=== PATIENT | female | born 1950 | race Caucasian/White ===

== ENCOUNTER 2017-01-31 12:09 | Emergency (ER) | payer OTHER ==
--- NOTE | 2017-01-31 13:03 | XRAY Preliminary Report ---
Exam: XR Hip w/Pelvis 2-3V RT IMPRESSION: Negative pelvis and right hip radiography. [facility] SITE ID: [id number]
--- NOTE | 2017-01-31 13:05 | XRAY Report ---
EXAM: RIGHT HIP AND PELVIS RADIOGRAPHY EXAM DATE: 01/31/2017 12:53 PM. HISTORY: Injury, pain with walking. COMPARISONS: None. TECHNIQUE: 1 view of the pelvis and 1 view of the right hip. FINDINGS: Bones: Normal. No fracture or bone lesion. Joints: The bilateral hip, pubis symphysis, and sacroiliac joints are anatomically aligned without si gnificant degenerative change Soft Tissues: No soft tissue swelling. IMPRESSION: Negative pelvis and right hip radiography. [facility] Referring Provider Line: [phone] SITE ID: [id number]
[2017-01-31] MEDS ORDERED: LIDOCAINE PATCH 5% TOP STA (13:18)
--- NOTE | 2017-01-31 13:20 | ED Physician Documentation ---
History of Present Illness - Stated complaint Stated Complaint: R HIP PAIN - Chief complaint Chief Complaint: Ext Problem - Additonal information Additional information: hx from pt 66 f no blood thinners her friends grandson ran into her and she twisted as she fell to avoid landing on him and landed on her right hip pain to lateral hip can walk but painful hurts to flex and int rotate Review of Systems Cardiac: denies: Chest pain / pressure GI: denies: Abdominal Pain Musculoskeletal: denies: Neck pain Neurologic: denies: Headache, Head injury Endocrine: denies: Easy bruising / bleeding PD PAST MEDICAL HISTORY - Past Medical History Past Medical History: Yes Psych: Depression Other Past Medical History: brain bleed - Past Surgical History Past Surgical History: Yes /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 - Present Medications Home Medications: Ambulatory Orders Medication Instructions Recorded Confirmed Sertraline HCl [Zoloft] 200 mg PO DAILY 01/09/15 01/31/17 Aspirin 81 mg DAILY 01/31/17 01/31/17 Cholecalciferol (Vitamin D3) 2,000 unit DAILY 01/31/17 01/31/17 [Vitamin D3] - Allergies Allergies/Adverse Reactions: Allergies Allergy/AdvReac Type Severity Reaction Status Date / Time Sulfa (Sulfonamide Allergy Unknown Verified 01/31/17 12:27 Antibiotics) - Social History Does the pt smoke?: No Smoking Status: Never smoker Does the pt drink ETOH?: No Does the pt have substance abuse?: No PD ED PE NORMAL - Vitals Vital signs reviewed: Yes - HEENT HEENT: Atraumatic - Extremities Extremities: Other (R hip not short, no brusing, not rotated TTP lateral hip just superior and posterior to greater torchanter pain with flexing and int rot hip, MSV intact) Results - Vitals Vitals: Vital Signs - 24 hr 01/31/17 12:23 Temperature 36.3 C L Heart Rate 79 Respiratory 18 Rate Blood Pressure 144/80 H O2 Saturation 97 Oxygen O2 Source Room air - Rads (name of study) hip/pelvis Radiology: See rad report (no fx) PD MEDICAL DECISION MAKING - ED course ED course: pt is ambulatory and does not appear osteopenic on xray so do not feel CT after neg xray needed in this case Departure - Departure Disposition: 01 Home, Self Care Clinical Impression: Contusion, hip Qualifiers: Encounter type: initial encounter Laterality: right Qualified Code(s): S70.01XA - Contusion of right hip, initial encounter Condition: Good Instructions: ED Contusion Hip Follow-Up: Kenney Olivas MD [Primary Care Provider] - Comments: The xray was read by a radiologist and no fractures were seen. Recommend lidocaine patches and tyenol and ice as needed for the pain Consider using the crutches to ease the weight bearing load on that hip. If your hip still hurts and is not improving in a week, recommend repeat xrays or even a CT scan Please follow up with your PMD about your blood pressure - it was high today
[2017-01-31] MEDS ORDERED: LIDOCAINE PATCH 5% TOP ONE (13:22)
[2017-01-31 13:50] VITALS: BP 128/70
== END 2017-01-31 13:40 | disposition home or self-care (01) ==
LOC: ED 12:09
DX: S70.01XA Contusion of right hip, initial encounter (principal); W01.198A Fall on same level from slipping, tripping and stumbling with subsequent striking against other object, initial encounter; Z79.82 Long term (current) use of aspirin
CPT/HCPCS: 73502; 99282; 99283; A9270